=== PATIENT | male | born 2000 | race Caucasian/White ===

== ENCOUNTER 2019-07-16 18:24 | Emergency (ER) | payer OTHER ==
[~2019-07-16] VITALS: Ht 185.4 cm; Wt 113.4 kg
[2019-07-16 18:25] VITALS: BP 157/85
--- NOTE | 2019-07-16 18:47 | PHYS DOC ---
Past Medical History Past Medical History: No Pertinent History Past Surgical History: No Surgical History Alcohol Use: None Drug Use: None Adult General Chief Complaint Chief Complaint: LACERATION/AVULSION HPI HPI Patient is a 19 year old male patient who presents to the ED today complaining of a laceration on the right upper eyebrow, patient got hit by a door at work. No LOC. Review of Systems Review of Systems Constitutional: Denies fever or chills [] Eyes: Denies change in visual acuity, redness, or eye pain [] Musculoskeletal: Denies back pain or joint pain [] Integument: Reports right upper eyebrow laceration Neurologic: Denies headache, focal weakness or sensory changes [] All other systems were reviewed and found to be within normal limits, except as documented in this note. Current Medications Current Medications Current Medications Medications (Trade) Dose Ordered Sig/Tran Start Time Stop Time Status Last Admin Dose Admin Lidocaine/Sodium Bicarbonate (Buffered Lidocaine 1%) 3 ml 1X ONCE 07/16/19 18:45 07/16/19 18:46 DC 07/16/19 18:54 3 ML Allergies Allergies Allergies Coded Allergies Type Severity Reaction Last Updated Verified No Known Drug Allergies 07/16/19 No Physical Exam Physical Exam Constitutional: Well developed, well nourished, no acute distress, non-toxic appearance. [] HENT: Normocephalic, atraumatic, bilateral external ears normal, oropharynx moist, no oral exudates, nose normal. [] Eyes: PERRLA, EOMI, conjunctiva normal, no discharge. [] Skin: Warm, dry, right upper eyebrow with a vertical laceration approximately 2 cm long not cutting through. Back: No tenderness, no CVA tenderness. [] Extremities: No tenderness, no cyanosis, no clubbing, ROM intact, no edema. [] Neurologic: Alert and oriented X 3, normal motor function, normal sensory function, no focal deficits noted. [] Psychologic: Affect normal, judgement normal, mood normal. [] Current Patient Data Vital Signs Vital Signs Date Time Temp Pulse Resp B/P (MAP) Pulse Ox O2 Delivery O2 Flow Rate FiO2 07/16/19 18:25 98.7 89 16 157/85 (109) 98 Room Air 98.7 EKG EKG [] Radiology/Procedures Radiology/Procedures Laceration/Wound Repair Wound Location: Right upper eyebrow Wound's Depth, Shape: Vertical Wound Length (cm): Approximately 2 cm Wound Explored: clean Irrigated w/ Saline (ccs): 20 Betadine Prep?: Yes Anesthesia: 1% buffered lidocaine Volume Anesthetic (ccs): Approximately 2 Wound Repaired With: Dissolvable gut Suture Size/Type: 5.0/interrupted sutures Number of Sutures: 6 Progress : Wound was left open to air Course & Med Decision Making Course & Med Decision Making Pertinent Labs and Imaging studies reviewed. (See chart for details) This is a 19-year-old male patient who presents to the ED today with right eyebrow laceration that was closed by me as noted in procedures. Wound care instructions and return precautions provided. Tetanus updated. Dragon Disclaimer Dragon Disclaimer This electronic medical record was generated, in whole or in part, using a voice recognition dictation system. Departure Departure Impression: Primary Impression: Laceration of eyebrow, right Disposition: 01 HOME, SELF-CARE Condition: STABLE Referrals: NO PCP (PCP) Follow-up with your doctor as needed Patient Instructions: Laceration Care, Adult Additional Instructions: You have a laceration to the right eyebrow that will closed with dissolvable stitches, they will fall off on their own. Keep the area clean and dry. You can shower and wash your face, do not soak the face, apply Neosporin to the area twice a day. Monitor the area for any signs of infection including but not limited to increased redness, warmth or yellow drainage from the areas and return to the ED if they occur. Problem Qualifiers Primary Impression: Laceration of eyebrow, right Encounter type: initial encounter Qualified Codes: S01.111A - Laceration without foreign body of right eyelid and periocular area, initial encounter JANETH MUSA [employer]INTENDENT Jul 16, 2019 18:47
[2019-07-16] MEDS: LIDOCAINE WITH 8.4% SOD BICARB 3 ML DISP.SYRIN. INJ ONE (18:54)
== END 2019-07-16 19:34 | disposition home or self-care (01) ==
LOC: ER 18:24
DX: S01.111A Laceration without foreign body of right eyelid and periocular area, initial encounter (principal); W22.8XXA Striking against or struck by other objects, initial encounter; Y93.89 Activity, other specified; Y92.89 Other specified places as the place of occurrence of the external cause; Y99.0 Civilian activity done for income or pay
CPT/HCPCS: 12011; 99283

== ENCOUNTER → 2019-07-17 | Outpatient (CLI) | payer OTHER ==
[2019-07-16 18:25] VITALS: BP 157/85
--- NOTE | 2019-07-17 13:56 | RAD ---
CT HEAD WITHOUT CONTRAST 07/17/2019 1:00 PM Indication: Head contusion Comparison: None Procedure: Multidetector CT imaging of the head was performed without the administration of contrast. Findings: There is no evidence of acute intracranial hemorrhage. There is no evidence of acute territorial infarction. Please note that CT is limited for evaluation of acute ischemia. No mass effect or midline shift is identified . The ventricles and basilar cisterns have an appropriate appearance. No abnormal extra-axial fluid collections are seen. No acute osseous changes are identified. Impression: No evidence of acute intracranial abnormality CT DOSING PQRS STATEMENT: One or more of the following individualized dose reduction techniques were utilized for this examination: 1. Automated exposure control 2. Adjustment of the mA and/or kV according to patient size 3. Use of iterative reconstruction technique Electronically signed by: Antonio Blevins MD (07/17/2019 1:53 PM) [id number]
== END | disposition home or self-care (01) ==
LOC: CT 13:21
DX: S00.93XA Contusion of unspecified part of head, initial encounter (principal); X58.XXXA Exposure to other specified factors, initial encounter; Y93.89 Activity, other specified; Y92.89 Other specified places as the place of occurrence of the external cause; Y99.8 Other external cause status
CPT/HCPCS: 70450